=== PATIENT | female | born 1945 | race Caucasian/White ===

== ENCOUNTER → 2020-07-15 | Outpatient (CLI) | payer MEDICARE | END | disposition home or self-care (01) | LOC: SHCH 09:56 | PROVIDERS: ATTEND Internal Medicine Cardiovascular Disease | DX: G45.1 Carotid artery syndrome (hemispheric) (principal) | CPT/HCPCS: 93880 ==

== ENCOUNTER 2021-11-15 23:23 | Observation (INO) | payer MEDICARE ==
[~2021-11-15] VITALS: Ht 162.6 cm; Wt 62.1 kg
[2021-11-15 23:45] LABS: BASOPHILS % (AUTO) 0.6 % (0.0-5.0); EOSINOPHILS % (AUTO) 3.6 % (0.0-8.0); HEMATOCRIT 38.6 % (36-48); LYMPHOCYTES % (AUTO) 24.6 % (21.0-51.0); MEAN CORPUSCULAR HEMOGLOBIN 29.4 pg (27.0-33.0); MEAN CORPUSCULAR HGB CONC 34.7 g/dL (32.0-36.0); MEAN CORPUSCULAR VOLUME 84.6 fL (79-99); MONOCYTES % (AUTO) 7.4 % (3.0-13.0); NEUTROPHILS % (AUTO) 63.5 % (40.0-77.0); PLATELET COUNT (AUTO) 194 K/uL (130-400); RED BLOOD CELL COUNT(AUTO) 4.56 MIL/uL (4.00-5.50); RED CELL DISTRIBUTION WIDTH 13.1 % (11.0-15.5)
[2021-11-16 00:01] LABS: CREATININE 0.7 mg/dL (0.5-1.5); POTASSIUM 4.2 mmol/L (3.5-5.1)
[2021-11-16 00:02] LABS: B-TYPE NATRIURETIC PEPTIDE 105 pg/mL (0-100)
[2021-11-16 00:06] LABS: ALBUMIN 4.1 g/dL (3.5-5.0); TOTAL PROTEIN, SERUM 7.1 g/dL (6.0-8.3)
[2021-11-16 00:07] LABS: APPEARANCE,URINE CLEAR (CLEAR); BILIRUBIN,URINE NEGATIVE (NEGATIVE); COLOR,URINE YELLOW (YELLOW); GLUCOSE, URINE (UA) NEGATIVE (NEGATIVE); KETONES,URINE NEGATIVE (NEGATIVE); LEUKOCYTE ESTERASE ,URINE NEGATIVE (NEGATIVE); NITRATE,URINE NEGATIVE (NEGATIVE); OCCULT BLOOD,URINE NEGATIVE (NEGATIVE); PROTEIN,URINE NEGATIVE (NEGATIVE); UROBILINOGEN,URINE 0.2 mg/dL (0.2-1.0)
[2021-11-16] MEDS ORDERED: ACETAMINOPHEN 325 MG TAB PO ONE (00:30)
[2021-11-16] MEDS ORDERED: LABETALOL 20MG SYG IV ONE (00:30)
[2021-11-16] MEDS ORDERED: NITROGLYCERIN 1GM OINT 1 INCH/1GM TD ONE (00:30)
[2021-11-16] MEDS: 0.9%NACL 1000ML 1,000 ML IV SCH (06:24)
[2021-11-16] MEDS ORDERED: ONDANSETRON 4MG INJ IVP PRN (06:30)
[2021-11-16] MEDS ORDERED: ACETAMINOPHEN 325 MG TAB PO PRN ×2 (06:30→19:00)
[2021-11-16] MEDS ORDERED: LABETALOL 20MG VIAL IV PRN (06:30)
[2021-11-16] MEDS ORDERED: NAPR220C15 PO (08:03)
[2021-11-16] MEDS ORDERED: SIMV-43 PO (08:03)
[2021-11-16] MEDS ORDERED: ALBU18HF7 IH (08:03)
[2021-11-16] MEDS ORDERED: OLME20TA22 PO (08:03)
[2021-11-16] MEDS ORDERED: BUSP7.5T7 PO (08:03)
[2021-11-16] MEDS ORDERED: TIZA2CAP9 PO (08:03)
[2021-11-16] MEDS ORDERED: TOPI25CA6 PO (08:03)
[2021-11-16] MEDS ORDERED: CA C1TAB95 PO (08:03)
[2021-11-16] MEDS ORDERED: LORA10TA7 PO ×2 (08:03→08:18)
[2021-11-16] MEDS ORDERED: AEC81 PO ×2 (08:03→08:18)
[2021-11-16] MEDS ORDERED: TOPI25TA48 PO (08:18)
[2021-11-16] MEDS ORDERED: FLUT1BLS15 IH (08:18)
[2021-11-16] MEDS ORDERED: ACET325T51 PO (08:18)
[2021-11-16] MEDS ORDERED: ALBU2.5V2 IH (08:18)
[2021-11-16 10:20] VITALS: BP 171/65
[2021-11-16 12:55] VITALS: BP 139/50
[2021-11-16 13:40] VITALS: BP 153/50
[2021-11-16 15:40] VITALS: BP 153/64
[2021-11-16] MEDS ORDERED: ALBUTEROL 0.083% 2.5 MG/3 ML INH IH PRN (19:00)
[2021-11-16] MEDS ORDERED: BUSPIRONE HCL 5 MG TABLET PO PRN (19:00)
[2021-11-16] MEDS ORDERED: KCL 20 MEQ ERTAB PO PRN (19:00)
[2021-11-16] MEDS ORDERED: POTASSIUM CHLORIDE 20MEQ/100ML 100 ML IV PRN (19:00)
[2021-11-16] MEDS ORDERED: POTASSIUM CHLORIDE 10% ELIXIR 20 MEQ/15 ML UDCUP PO PRN (19:00)
[2021-11-16] MEDS ORDERED: MAG/ALUM/SIMETH 30 ML UDCUP PO PRN (19:00)
[2021-11-16] MEDS ORDERED: LIDOCAINE HCL-MPF 1% 2ML VIAL IV PRN (19:00)
[2021-11-16] MEDS ORDERED: DiphenhydrAMINE HCL 50 MG/ML VIAL IV PRN (19:00)
[2021-11-16] MEDS ORDERED: DIPHENHYDRAMINE HCL 25 MG CAPSULE PO PRN (19:00)
[2021-11-16] MEDS ORDERED: LACTULOSE 20 GM/30 ML UDCUP PO PRN (19:00)
[2021-11-16] MEDS ORDERED: HYDRALAZINE HCL 10 MG TABLET PO PRN (19:00)
[2021-11-16 20:00] VITALS: BP 138/53
[2021-11-16] MEDS ORDERED: TOPIRAMATE 25 MG TABLET PO SCH (21:00)
[2021-11-17 00:17] VITALS: BP 145/63
[2021-11-17 04:00] VITALS: BP 159/74
[2021-11-17 05:09] LABS: CREATININE 0.7 mg/dL (0.5-1.5); POTASSIUM 4.2 mmol/L (3.5-5.1)
[2021-11-17 05:24] LABS: HEMATOCRIT 35.9 % (36-48); MEAN CORPUSCULAR HEMOGLOBIN 29.4 pg (27.0-33.0); MEAN CORPUSCULAR VOLUME 86.5 fL (79-99); RED BLOOD CELL COUNT(AUTO) 4.15 MIL/uL (4.00-5.50); RED CELL DISTRIBUTION WIDTH 13.4 % (11.0-15.5); WHITE BLOOD COUNT (AUTO) 6.9 K/uL (4.8-10.8)
[2021-11-17 07:30] VITALS: BP 151/75
[2021-11-17] MEDS: 0.9%NACL 1000ML 1,000 ML IV SCH (08:54)
[2021-11-17] MEDS ORDERED: ATORVASTATIN 20 MG TABLET PO SCH (09:00)
[2021-11-17] MEDS ORDERED: LOSARTAN 100 MG TABLET PO SCH (09:00)
[2021-11-17] MEDS ORDERED: FAMOTIDINE 20MG TAB PO SCH (09:00)
[2021-11-17] MEDS ORDERED: ASPIRIN 81 MG EC TAB PO SCH (09:00)
[2021-11-17] MEDS ORDERED: ENOXAPARIN SODIUM 40 MG/0.4 ML SYRINGE SQ SCH (09:00)
== END 2021-11-17 11:15 | disposition home or self-care (01) ==
LOC: EDH 23:23 → INTOOBSV 11-16 06:03 → EDHIP 11-16 06:03 → 4BH 11-16 08:58
PROVIDERS: ADMIT Internal Medicine; ATTEND Internal Medicine
DX: I16.0 Hypertensive urgency (principal); Z20.822 Contact with and (suspected) exposure to COVID-19; E04.2 Nontoxic multinodular goiter; I77.9 Disorder of arteries and arterioles, unspecified; I63.511 Cerebral infarction due to unspecified occlusion or stenosis of right middle cerebral artery; I16.1 Hypertensive emergency; I13.10 Hypertensive heart and chronic kidney disease without heart failure, with stage 1 through stage 4 chronic kidney disease, or unspecified chronic kidney disease; N18.2 Chronic kidney disease, stage 2 (mild); E11.22 Type 2 diabetes mellitus with diabetic chronic kidney disease; E11.42 Type 2 diabetes mellitus with diabetic polyneuropathy; E78.00 Pure hypercholesterolemia, unspecified; G56.01 Carpal tunnel syndrome, right upper limb; I25.10 Atherosclerotic heart disease of native coronary artery without angina pectoris; H35.30 Unspecified macular degeneration; I34.0 Nonrheumatic mitral (valve) insufficiency; I65.22 Occlusion and stenosis of left carotid artery; E78.5 Hyperlipidemia, unspecified; G93.89 Other specified disorders of brain; J10.1 Influenza due to other identified influenza virus with other respiratory manifestations; J30.9 Allergic rhinitis, unspecified; J44.9 Chronic obstructive pulmonary disease, unspecified; R51.9 Headache, unspecified; R19.7 Diarrhea, unspecified; J98.01 Acute bronchospasm; Z86.73 Personal history of transient ischemic attack (TIA), and cerebral infarction without residual deficits; Z87.891 Personal history of nicotine dependence; Z90.711 Acquired absence of uterus with remaining cervical stump; Z90.710 Acquired absence of both cervix and uterus; Z79.899 Other long term (current) drug therapy; Z98.890 Other specified postprocedural states
CPT/HCPCS: 82550; 84484 ×2; 80053; 83880; 85025; 87804 ×2; 83605; 87635; 71045; 93005 ×2; 84145; 96374; 96361 ×2; 96375; 99285; 85651 ×2; 87324; 82270; 81003; 36415 ×3; 70450; 93306; 93356; 93880; 94664; 83630; 96372; 80048; 85027; C9803; J2405; G0378 ×4; J1650

== ENCOUNTER → 2022-09-07 | Outpatient (CLI) | payer MEDICARE ==
[~2022-09-07] MED LIST: ACET325T51 PO; AEC81 PO; ALBU18HF7 IH; BUSP7.5T7 PO; CA C1TAB95 PO; FLUT1BLS15 IH; LORA10TA7 PO; OLME20TA22 PO; SIMV-43 PO; TIZA2CAP9 PO; TOPI25TA48 PO
[2022-09-07 16:21] LABS: BASOPHILS % (AUTO) 0.7 % (0.0-5.0); EOSINOPHILS % (AUTO) 1.5 % (0.0-8.0); HEMATOCRIT 49.1 % (36-48); LYMPHOCYTES % (AUTO) 41.5 % (21.0-51.0); MEAN CORPUSCULAR HEMOGLOBIN 28.7 pg (27.0-33.0); MEAN CORPUSCULAR HGB CONC 33.2 g/dL (32.0-36.0); MEAN CORPUSCULAR VOLUME 86.4 fL (79-99); MONOCYTES % (AUTO) 7.6 % (3.0-13.0); NEUTROPHILS % (AUTO) 48.4 % (40.0-77.0); PLATELET COUNT (AUTO) 261 K/uL (130-400); RED BLOOD CELL COUNT(AUTO) 5.68 MIL/uL (4.00-5.50); RED CELL DISTRIBUTION WIDTH 13.4 % (11.0-15.5); WHITE BLOOD COUNT (AUTO) 9.1 K/uL (4.8-10.8)
== END | disposition home or self-care (01) ==
LOC: LAB 12:57
PROVIDERS: ATTEND Internal Medicine Cardiovascular Disease
DX: Z79.01 Long term (current) use of anticoagulants (principal)
CPT/HCPCS: 36415; 85025

== ENCOUNTER 2022-10-30 03:46 | Inpatient (IN) | payer MEDICARE ==
[~2022-10-30] VITALS: Ht 157.5 cm; Wt 62.8 kg
[~2022-10-30 03:46] MED LIST changes: +ACET-2743 PO; -ACET325T51 PO; -AEC81 PO; -ALBU18HF7 IH; +APIX5TAB PO; -BUSP7.5T7 PO; -CA C1TAB95 PO; -FLUT1BLS15 IH; +METO-391 PO; +MVIT PO; -OLME20TA22 PO; +OLME40TA18 PO
[2022-10-30 04:20] LABS: BASOPHILS % (AUTO) 0.4 % (0.0-5.0); HEMATOCRIT 40.6 % (36-48); LYMPHOCYTES % (AUTO) 17.4 % (21.0-51.0); MEAN CORPUSCULAR HEMOGLOBIN 28.4 pg (27.0-33.0); MEAN CORPUSCULAR HGB CONC 32.3 g/dL (32.0-36.0); MEAN CORPUSCULAR VOLUME 87.9 fL (79-99); MONOCYTES % (AUTO) 6.7 % (3.0-13.0); NEUTROPHILS % (AUTO) 74.3 % (40.0-77.0); PLATELET COUNT (AUTO) 173 K/uL (130-400); RED BLOOD CELL COUNT(AUTO) 4.62 MIL/uL (4.00-5.50); RED CELL DISTRIBUTION WIDTH 13.2 % (11.0-15.5); WHITE BLOOD COUNT (AUTO) 8.2 K/uL (4.8-10.8)
[2022-10-30 04:32] LABS: POTASSIUM 4.4 mmol/L (3.5-5.1)
[2022-10-30] MEDS ORDERED: ATROPINE 1MG SYG IVP ONE (04:33)
[2022-10-30 04:37] LABS: ALBUMIN 3.3 g/dL (3.5-5.0); TOTAL PROTEIN, SERUM 5.8 g/dL (6.0-8.3)
[2022-10-30] MEDS: ATROPINE 1MG SYG IVP SCH (04:42)
[2022-10-30] MEDS ORDERED: DOPAMINE HCL 400 MG/D5%-WATER 250 ML IV PRN (05:00)
[2022-10-30] MEDS: DOPAMINE 800MG/D5 250ML 250 ML IV PRN (05:24)
[2022-10-30 05:30] LABS: INR 1.06 (0.85-1.15); PROTHROMBIN TIME 12.3 SEC (9.6-11.6)
[2022-10-30] MEDS ORDERED: ONDANSETRON 4MG INJ IV PRN (05:30)
[2022-10-30 05:31] LABS: PARTIAL THROMBOPLASTIN TIME 30.2 SEC (26.3-35.5)
[2022-10-30] MEDS: FAMOTIDINE 20MG TAB PO SCH (09:14)
[2022-10-30] MEDS ORDERED: FLEC50TA3 PO (15:09)
[2022-10-30] MEDS ORDERED: APIXABAN 5 MG TABLET PO SCH (21:00)
[2022-10-30] MEDS: APIXABAN 5 MG TABLET PO SCH (21:29)
[2022-10-31] MEDS: DOPAMINE 800MG/D5 250ML 250 ML IV PRN (01:00)
[2022-10-31] MEDS: ATROPINE 1MG SYG IVP SCH (05:17)
[2022-10-31 06:15] LABS: ALBUMIN 2.8 g/dL (3.5-5.0); CREATININE 0.8 mg/dL (0.5-1.5); THYROID STIMULATING HORMONE 0.15 uIU/mL (0.36-3.74); TOTAL PROTEIN, SERUM 5.6 g/dL (6.0-8.3)
[2022-10-31] MEDS: APIXABAN 5 MG TABLET PO SCH ×2 (08:51→22:29)
[2022-10-31] MEDS: MULTIVITAMIN TABLET PO SCH (08:51)
[2022-10-31] MEDS: FAMOTIDINE 20MG TAB PO SCH (08:52)
[2022-10-31] MEDS: LOSARTAN 100 MG TABLET PO SCH (09:00)
[2022-10-31] MEDS ORDERED: METOPROLOL SUCCINATE 50 MG TAB.SR.24H PO SCH (09:00)
[2022-10-31] MEDS: FLECAINIDE ACETATE 100 MG TABLET PO SCH ×2 (09:32→22:30)
[2022-10-31] MEDS: TOPIRAMATE 25 MG TABLET PO SCH (09:32)
[2022-10-31 16:10] VITALS: BP 147/72; PULSE 63; RESP 18
[2022-10-31 17:21] VITALS: O2SAT 99
[2022-10-31] MEDS: ACETAMINOPHEN 325 MG TAB PO PRN (17:48)
[2022-10-31 19:15] VITALS: BP 89/53; PULSE 71; RESP 22
[2022-10-31 20:00] VITALS: O2SAT 99
[2022-10-31] MEDS: METOPROLOL SUCCINATE 25 MG TAB.SR.24H PO SCH (22:29)
[2022-11-01] VITALS (12 sets, daily range): BP systolic 99–201; BP diastolic 52–87; PULSE 53–127; RESP 16–20; O2SAT 99
[2022-11-01] MEDS ORDERED: REGADENOSON 0.4 MG/5 ML PF SYG IVP SCH (07:30)
[2022-11-01] MEDS: FLECAINIDE ACETATE 100 MG TABLET PO SCH ×2 (07:32→20:19)
[2022-11-01] MEDS: APIXABAN 5 MG TABLET PO SCH ×2 (07:32→20:14)
[2022-11-01] MEDS: FAMOTIDINE 20MG TAB PO SCH (07:32)
[2022-11-01] MEDS: MULTIVITAMIN TABLET PO SCH (07:32)
[2022-11-01] MEDS: LOSARTAN 100 MG TABLET PO SCH ×2 (07:32→17:23)
[2022-11-01] MEDS: TOPIRAMATE 25 MG TABLET PO SCH (07:32)
[2022-11-01] MEDS: METOPROLOL SUCCINATE 25 MG TAB.SR.24H PO SCH ×2 (07:32→20:13)
[2022-11-01] MEDS ORDERED: AMIO200T68 PO (09:34)
[2022-11-01] MEDS ORDERED: LORA10TA7 PO (09:34)
[2022-11-01] MEDS ORDERED: METO-391 PO (09:34)
[2022-11-01] MEDS ORDERED: FLUT1BLS15 IH (09:34)
[2022-11-01] MEDS ORDERED: OXYB-66 PO (09:34)
[2022-11-01] MEDS ORDERED: BUSP7.5T7 PO (09:34)
[2022-11-01] MEDS ORDERED: HYDRALAZINE 20MG/ML VIAL IV PRN (17:50)
[2022-11-01] MEDS ORDERED: ALPRAZOLAM 0.25 MG TABLET PO PRN (19:00)
[2022-11-01] MEDS: ACETAMINOPHEN 325 MG TAB PO PRN (20:13)
[2022-11-02] VITALS (8 sets, daily range): BP systolic 105–170; BP diastolic 22–80; PULSE 54–90; RESP 18–20; O2SAT 99
[2022-11-02] MEDS ORDERED: BUSPIRONE HCL 5 MG TABLET PO PRN (01:30)
[2022-11-02] MEDS ORDERED: HYDRALAZINE 20MG/ML VIAL IV PRN (01:30)
[2022-11-02] MEDS ORDERED: GLUCAGON 1MG KIT 1 MG ML IM PRN (02:00)
[2022-11-02] MEDS ORDERED: POTASSIUM CHLORIDE 20MEQ/100ML 100 ML IV PRN (02:00)
[2022-11-02] MEDS ORDERED: DEXTROSE 50%-WATER 50 ML DISP.SYRIN IV PRN (02:00)
[2022-11-02] MEDS ORDERED: POTASSIUM CHLORIDE 10% ELIXIR 20 MEQ/15 ML UDCUP PO PRN (02:00)
[2022-11-02] MEDS ORDERED: MAGNESIUM 2GM PREMIX 50ML 50 ML IV PRN (02:00)
[2022-11-02] MEDS ORDERED: KCL 20 MEQ ERTAB PO PRN (02:00)
[2022-11-02 03:40] LABS: HEMATOCRIT 42.6 % (36-48); MEAN CORPUSCULAR HEMOGLOBIN 28.4 pg (27.0-33.0); MEAN CORPUSCULAR HGB CONC 32.6 g/dL (32.0-36.0); MEAN CORPUSCULAR VOLUME 86.9 fL (79-99); RED BLOOD CELL COUNT(AUTO) 4.9 MIL/uL (4.00-5.50); RED CELL DISTRIBUTION WIDTH 13.2 % (11.0-15.5); WHITE BLOOD COUNT (AUTO) 7.8 K/uL (4.8-10.8)
[2022-11-02 03:53] LABS: CREATININE 0.8 mg/dL (0.5-1.5); MAGNESIUM 1.7 mg/dL (1.80-2.40); POTASSIUM 3.7 mmol/L (3.5-5.1)
[2022-11-02] MEDS: TOPIRAMATE 25 MG TABLET PO SCH (08:30)
[2022-11-02] MEDS: FAMOTIDINE 20MG TAB PO SCH (08:30)
[2022-11-02] MEDS: MULTIVITAMIN TABLET PO SCH (08:30)
[2022-11-02] MEDS: LOSARTAN 100 MG TABLET PO SCH (08:30)
[2022-11-02] MEDS: METOPROLOL SUCCINATE 25 MG TAB.SR.24H PO SCH ×2 (08:31→20:58)
[2022-11-02] MEDS: APIXABAN 5 MG TABLET PO SCH ×2 (08:31→20:57)
[2022-11-02] MEDS: PROPAFENONE HCL 150 MG TABLET PO SCH ×2 (08:32→17:22)
[2022-11-02] MEDS: HYDRALAZINE HCL 10 MG TABLET PO PRN (18:04)
[2022-11-03] VITALS: BP 154/84; PULSE 56; RESP 18
[2022-11-03] MEDS: PROPAFENONE HCL 150 MG TABLET PO SCH ×2 (00:40→09:20)
[2022-11-03 04:30] VITALS: BP 176/74; PULSE 52; RESP 18
[2022-11-03] MEDS: HYDRALAZINE HCL 10 MG TABLET PO PRN (05:26)
[2022-11-03] MEDS: ACETAMINOPHEN 325 MG TAB PO PRN (06:37)
[2022-11-03 06:38] VITALS: BP 153/69; PULSE 54; RESP 20
[2022-11-03 07:36] VITALS: BP 130/57; PULSE 52; RESP 18
[2022-11-03] MEDS: METOPROLOL SUCCINATE 25 MG TAB.SR.24H PO SCH (09:00)
[2022-11-03] MEDS: MULTIVITAMIN TABLET PO SCH (09:20)
[2022-11-03] MEDS: FAMOTIDINE 20MG TAB PO SCH (09:20)
[2022-11-03] MEDS: APIXABAN 5 MG TABLET PO SCH (09:20)
[2022-11-03] MEDS: TOPIRAMATE 25 MG TABLET PO SCH (09:21)
[2022-11-03] MEDS: LOSARTAN 100 MG TABLET PO SCH (09:21)
[2022-11-03] MEDS ORDERED: DILTIAZEM 120MG SR CAP PO SCH (09:30)
[2022-11-03] MEDS ORDERED: DILT-36 PO (09:37)
[2022-11-03] MEDS ORDERED: PROP225C8 PO (09:37)
[2022-11-03 10:10] VITALS: O2SAT 99
== END 2022-11-03 12:32 | disposition home or self-care (01) | DRG 309 ==
LOC: EDH 03:46 → EDHIP 05:19 → 4DH 22:43 → EDHIP 10-31 03:04 → 2DH 10-31 16:01
PROVIDERS: ADMIT Internal Medicine; ATTEND Internal Medicine
DX: I48.0 Paroxysmal atrial fibrillation (principal); D68.59 Other primary thrombophilia; E44.1 Mild protein-calorie malnutrition; I13.0 Hypertensive heart and chronic kidney disease with heart failure and stage 1 through stage 4 chronic kidney disease, or unspecified chronic kidney disease; I16.0 Hypertensive urgency; R07.89 Other chest pain; I49.5 Sick sinus syndrome; I70.8 Atherosclerosis of other arteries; N18.2 Chronic kidney disease, stage 2 (mild); E11.22 Type 2 diabetes mellitus with diabetic chronic kidney disease; I50.9 Heart failure, unspecified; E04.2 Nontoxic multinodular goiter; E78.2 Mixed hyperlipidemia; E11.42 Type 2 diabetes mellitus with diabetic polyneuropathy; T46.2X5A Adverse effect of other antidysrhythmic drugs, initial encounter; E78.00 Pure hypercholesterolemia, unspecified; I95.9 Hypotension, unspecified; I25.10 Atherosclerotic heart disease of native coronary artery without angina pectoris; J44.9 Chronic obstructive pulmonary disease, unspecified; R79.89 Other specified abnormal findings of blood chemistry; R74.8 Abnormal levels of other serum enzymes; F17.200 Nicotine dependence, unspecified, uncomplicated; Z79.01 Long term (current) use of anticoagulants; Z88.0 Allergy status to penicillin; Z68.25 Body mass index [BMI] 25.0-25.9, adult; Z86.73 Personal history of transient ischemic attack (TIA), and cerebral infarction without residual deficits; Z83.3 Family history of diabetes mellitus; Z82.49 Family history of ischemic heart disease and other diseases of the circulatory system; Y92.89 Other specified places as the place of occurrence of the external cause
CPT/HCPCS: 36415; 71045; 78452; 80048; 80053; 82570; 82948; 83497; 83735; 83880; 84439; 84443; 84484; 85025; 85027; 85610; 85730; 93005; 93017; 96374; 99291; A9500; G0378; J0360; J0461; J1265; J2405; J2785; J3475

== ENCOUNTER 2023-10-31 22:54 | Emergency (ER) | payer MEDICARE ==
[~2023-10-31] VITALS: Ht 162.6 cm; Wt 60.8 kg
[~2023-10-31 22:54] MED LIST changes: -ACET-2743 PO; +BUSP7.5T7 PO; +DILT-36 PO; +FLUT1BLS15 IH; -METO-391 PO; +OXYB-66 PO; +PROP225C24 PO
[2023-11-01 00:18] LABS: CREATININE 0.7 mg/dL (0.5-1.0); POTASSIUM 3.8 mmol/L (3.5-5.1)
[2023-11-01] MEDS: LACTATED RINGERS 1000ML 1,000 ML IV ONE (00:19)
[2023-11-01 00:27] LABS: BASOPHILS # (AUTO) 0.05 K/uL (0.00-0.20); BASOPHILS % (AUTO) 0.4 % (0.0-5.0); EOSINOPHILS % (AUTO) 1.7 % (0.0-8.0); IMMATURE GRANULOCYTE ABSOLUTE 0.04 K/uL (0-1); LYMPHOCYTES # (AUTO) 3.2 K/uL (1.0-4.8); LYMPHOCYTES % (AUTO) 26.5 % (21.0-51.0); MEAN CORPUSCULAR HEMOGLOBIN 28.9 pg (27.0-33.0); MEAN CORPUSCULAR HGB CONC 34.1 g/dL (32.0-36.0); MEAN CORPUSCULAR VOLUME 84.8 fL (79-99); MONOCYTES # (AUTO) 0.9 K/uL (0.1-1.0); MONOCYTES % (AUTO) 7.5 % (3.0-13.0); NEUTROPHILS # (AUTO) 7.6 K/uL (1.8-7.7); NEUTROPHILS % (AUTO) 63.6 % (40.0-77.0); PLATELET COUNT (AUTO) 207 K/uL (130-400); RED CELL DISTRIBUTION WIDTH 12.6 % (11.0-15.5); WHITE BLOOD COUNT (AUTO) 11.9 K/uL (4.8-10.8)
[2023-11-01 01:50] LABS: SARS-CoV-2, RNA, NAAT NEGATIVE SARS CoV-2 (NEGATIVE)
[2023-11-01 01:55] LABS: INFLUENZA TYPE A Negative For Type A (NEGATIVE); INFLUENZA TYPE B Negative For Type B (NEGATIVE)
[2023-11-01 03:07] LABS: APPEARANCE,URINE CLEAR (CLEAR); BILIRUBIN,URINE NEGATIVE (NEGATIVE); COLOR,URINE COLORLESS (YELLOW); GLUCOSE, URINE (UA) NEGATIVE (NEGATIVE); KETONES,URINE NEGATIVE (NEGATIVE); LEUKOCYTE ESTERASE ,URINE NEGATIVE Leu/uL (NEGATIVE); NITRATE,URINE NEGATIVE (NEGATIVE); OCCULT BLOOD,URINE NEGATIVE (NEGATIVE); PH,URINE 6.5 (5.0-8.0); PROTEIN,URINE NEGATIVE (NEGATIVE); UROBILINOGEN,URINE 0.2 mg/dL (0.2-1.0)
[2023-11-01 03:11] LABS: ADD UA MICROSCOPIC NO
[2023-11-01] MEDS ORDERED: LACT10SO85 PO (04:10)
[2023-11-01 05:20] VITALS: BP 132/72; PULSE 68; RESP 16; O2SAT 97
== END 2023-11-01 05:23 | disposition home or self-care (01) ==
LOC: EDH 22:54
DX: E86.0 Dehydration (principal); G25.81 Restless legs syndrome; E78.00 Pure hypercholesterolemia, unspecified; I10 Essential (primary) hypertension; I48.91 Unspecified atrial fibrillation; Z20.822 Contact with and (suspected) exposure to COVID-19; Z88.0 Allergy status to penicillin; Z79.01 Long term (current) use of anticoagulants; Z79.899 Other long term (current) drug therapy; Z90.710 Acquired absence of both cervix and uterus; Z98.890 Other specified postprocedural states
CPT/HCPCS: 99285; 71045; 87635; 82550; 84484; 80048; 85025; 87804 ×2; 81003; 36415; 93005; J7120

== ENCOUNTER 2024-10-05 16:25 | Emergency (ER) | payer MEDICARE ==
[~2024-10-05] VITALS: Ht 162.6 cm; Wt 60.8 kg
[~2024-10-05 16:25] MED LIST changes: +LACT10SO85 PO; +TOPI-257 PO; -TOPI25TA48 PO
[2024-10-05] MEDS ORDERED: TRAM-543 PO (17:32)
--- NOTE | 2024-10-05 17:32 | ERN ---
General Chief Complaint: Mechanical Fall Stated Complaint: FALL Time Seen by MD: 16:26 Source: patient History of Present Illness Initial Comments Patient is a an 78-year-old female coming in to be evaluated for she had a fall. Per patient she tripped earlier today while ambulating and states she hurt both lower legs. She states that nothing else hurts and she is here just to evaluate her lower legs. Allergies: Coded Allergies: Penicillins (Unverified Allergy, Unknown, 11/15/21) POSSIBLE ALLERGY Home Meds Active Scripts Tramadol HCl/Acetaminophen (Tramadol-Acetaminophn 37.5-325) 37.5 Mg-325 Mg Tablet, 1 TAB PO BID PRN for pain for 3 Days, #12 TAB 0 Refills Prov:ALLIE DRUMMOND MD 10/05/24 Lactulose (Lactulose) 10 Gram/15 Ml Solution, 10 GM PO BID PRN for CONSTIPATION for 5 Days, #100 ML Prov:ALLIE DRUMMOND MD 11/01/23 Diltiazem HCl (Diltiazem 24Hr ER) 120 Mg Cap.er.24h, 120 MG PO DAILY, #30 CAPSULE. 3 Refills Prov:ALVARO CHAVARRIA MD 11/03/22 Propafenone HCl (Propafenone HCl) 225 Mg Cap.er.12h, 225 MG PO BID, #60 CAP TESS. 3 Refills Prov:ALVARO CHAVARRIA MD 11/03/22 Fluticasone/Umeclidin/Vilanter (Trelegy Ellipta 200-62.5-25) 1 Each Blst.w.dev, 1 EACH IH DAILY, #90 DAYS Prov:ESTELLA ECKERT MD 11/01/22 Buspirone HCl (Buspirone HCl) 7.5 Mg Tablet, 7.5 MG PO BID PRN for ANXIETY, #90 TAB Prov:ESTELLA ECKERT MD 11/01/22 Oxybutynin Chloride (Oxybutynin Chloride ER) 5 Mg Tab.er.24, 5 MG PO DAILY, #90 TAB Prov:ESTELLA ECKERT MD 11/01/22 Loratadine (Loratadine) 10 Mg Tablet, 10 MG PO DAILY PRN for allergy, #90 TAB Prov:ESTELLA ECKERT MD 11/01/22 Reported Medications Olmesartan Medoxomil (Olmesartan Medoxomil) 40 Mg Tablet, 20 MG PO AM, TAB 10/26/22 Apixaban (Eliquis) 5 Mg Tablet, 5 MG PO BID, TAB 10/26/22 Topiramate (Topiramate) 25 Mg Tablet, 25 MG PO AM, TAB 10/26/22 Multivitamins,Therapeutic (Multivitamin Tablet) 1 Tab Tab, 1 TAB PO DAILY, TAB 10/26/22 Tizanidine HCl (Tizanidine HCl) 2 Mg Capsule, 2 MG PO HSPRN PRN for MUSCLE SPASMS, CAP 11/16/21 Simvastatin (Simvastatin) 20 Mg Tablet, 20 MG PO HS, TAB 11/16/21 Past Medical History Past Medical History: A-Fib, High Cholesterol, Other Medical History Other: TIA Past Surgical History: Hysterectomy, Other Surgical History Other: AORTIC VALVE SX Family History Family History: DM, HTN Social History Social History: Negative, Lives with family ROS Dictation CONSTITUTIONAL: No chills, no fever, no weakness, no diaphoresis, no malaise. HEAD/FACE: No signs of trauma. EENT: No eye pain, no blurred vision, no tearing, no double vision, no ear pain, no ear discharge, no nose pain, no nasal congestion, no throat pain, no throat swelling, no mouth pain. RESPIRATORY: No cough, no orthopnea, no SOB, no stridor, no wheezing. CARDIOVASCULAR: No chest pain, no edema, no palpitations, no syncope. GASTROINTESTINAL/ABDOMINAL: No abdominal pain, no constipation, no diarrhea, no nausea, no vomiting. GENITOURINARY: No abnormal discharge, no dysuria, no frequent urination, no hematuria. No complaints of pain in the genitals. MUSCULOSKELETAL: No back pain, no gout, no joint pain, no joint swelling, muscle pain, no muscle stiffness, no neck pain. INTEGUMENTARY: No change in color, no change in hair/nails, no dryness, no lesion, no lumps, no rash. NEUROLOGICAL/PSYCH: No anxiety, not depressed, no emotional problem, no h eadache, no numbness, no pre-existing deficit, no history of seizures, no tremors, no weakness. HEMATOLOGIC/LYMPHATIC: Not anemic, no history of blood clots, no apparent bleeding, no bruising, glands not swollen. All Systems Negative, Except as Noted. Physical Exam Physical Exam Dictation VITAL SIGNS: Reviewed. GENERAL APPEARANCE: Alert, oriented x3, no acute distress, obese. HEAD AND FACE: Non-traumatic. EYES: PERRL, pink conjunctivas, eyelid no trauma, anterior chamber clear. EARS: Pinnas intact and no signs of trauma or erythema. Ear canals clear and no discharge. TMs no erythema. NOSE: No discharge, no bleeding. OROPHARYNX: Mouth normal, teeth no caries, tongue pink. Pharynx clear, no erythema. Tonsils no exudates, no abscesses noted. Mucous membrane moist. NECK: Supple, non-tender, no thyromegaly, no masses, no JVD, no bruits. BREAST: Deferred. CHEST: No tenderness, no crepitus, no paradoxical movement, no retractions. LUNGS: Clear, well-ventilated, symmetric, no rales, no wheezing, no rhonchi, no stridor, good breath sounds bilaterally. HEART: Regular rate, regular rhythm, no murmur, no gallops. VASCULAR: No peripheral edema. ABDOMEN: Soft, positive bowel sounds, nondistended, no guarding, nontender, no rebound, no masses no hepatomegaly, no splenomegaly, no Sales's sign, no hernias. RECTAL: Deferred. GENITAL: Deferred. NEUROLOGICAL: Normal speech, gross motor function intact, gross sensory function intact. MUSCULOSKELETAL: Neck nontender, full range of motion, back nontender, full range of motion. EXTREMITIES: Nontender, full range of motion. Anterior peters contusions bilateral SKIN: Color pink, dry, no turgor, no rash, no lacerations, no abrasions, no contusions. LYMPHATICS: Deferred. Results Laboratory and Microbiology Labs Reviewed?: Yes EKG/XRAY/US/CT/MRI X-RAY Comment X-ray lower extremity tib-fib bilateral-NAD MDM MDM: Differential diagnosis: Fall, leg contusion, Rationale: Tests considered and ordered secondary to shared decision making include: Previous outside records reviewed: Old ER visits. Risk of complication and/or morbidity or mortality of patient management: None Medications-Per medication reconciliation Need for hospitalization: Patient does not meet criteria for hospitalization. Patient is a 78-year-old female coming in to be evaluated for lower extremity pain after a fall. X-ray did not disclose acute findings. Patient will be discharged in stable condition with a diagnosis of lower leg contusion. I did advised her appropriate follow up with the PCP. Medication will be provided for symptomatic relief. ED Course Orders Procedure Category Date Status Time Tibia/Fibula 2vws Lt RAD 10/05/24 Taken 16:31 Tibia/Fibula 2vws Rt RAD 10/05/24 Taken 16:31 Tramadol PHA 10/05/24 In Process Hcl/Acetaminophen 17:30 Current Medications Medications (Trade) Dose Ordered Sig/Maribel Route PRN Reason Start Time Stop Time Status Last Admin Dose Admin Tramadol/ Acetaminophen (UltraCET) 1 tab ONCE PO 10/05/24 17:30 10/05/24 21:30 Vital Signs Date Time Temp Pulse Resp B/P (MAP) Pulse Ox O2 Delivery O2 Flow Rate FiO2 10/05/24 16:28 98.1 69 16 196/63 99 Room Air 0 DX & DISP Disposition: Discharge Departure Impression: Primary Impression: Contusion, lower leg Condition: Stable Scripts Tramadol HCl/Acetaminophen (Tramadol-Acetaminophn 37.5-325) 37.5 Mg-325 Mg Tabl et 1 TAB PO BID PRN for pain for 3 Days, #12 TAB 0 Refills Prov: ALLIE DRUMMOND MD 10/05/24 Additional Instructions: FOLLOW-UP WITH PRIMARY CARE PROVIDER IN 1 TO 2 DAYS. TAKE MEDICATIONS DIRECTED HERE IN THE EMERGENCY ROOM. OKAY TO CONTINUE HOME MEDICATIONS UNLESS OTHERWISE DISCUSSED DURING YOUR VISIT IN THE EMERGENCY ROOM TODAY. RETURN TO YOUR NEAREST EMERGENCY ROOM IF SYMPTOMS WORSEN OR IF THERE IS NO IMPROVEMENT. CALL 911 IF YOU NEED IMMEDIATE ASSISTANCE. TAKE TYLENOL [id number]-[id number]-[id number] NEEDED AND IF NO CONTRAINDICATIONS ARE PRESENT. INCREASE ORAL HYDRATION. A WOUND CULTURE OR URINE CULTURE WAS ORDERED HERE IN THE EMERGENCY ROOM DEPARTMENT PLEASE FOLLOW-UP WITH PRIMARY CARE PROVIDER AND ADVISE THEM TO GET REPORTS FROM OUR FACILITY. IF YOU HAD ANY JOHN WRAP/SPLINTS THAT WERE APPLIED HERE, PLEASE DO NOT REMOVE THEM UNTIL YOU SEE YOUR PRIMARY CARE OR SPECIALTY. Referrals: Referrals: ESTELLA ECKERT MD (PCP) Time of Disposition: 17:31 ALLIE DRUMMOND MD Oct 05, 2024 17:32
[2024-10-05] MEDS: traMADol /APAP 37.5MG/325MG TAB PO SCH (17:47)
[2024-10-05 18:12] VITALS: BP 157/69; PULSE 89; RESP 20; TEMP 98.1; O2SAT 99
--- NOTE | 2024-10-06 01:42 | HMCIMG ---
EXAM: CR Left Tibia and Fibula, 3 views. CLINICAL HISTORY: Fall. COMPARISON: None provided. FINDINGS: No acute fracture or aggressive appearing osseous lesion. Joint spaces are within normal limits. Diffuse soft tissue swelling is evident. Prominent plantar and posterior calcaneal enthesophytes. IMPRESSION: No acute bony abnormality is evident. /[place]
--- NOTE | 2024-10-06 01:47 | HMCIMG ---
EXAM: CR Right Tibia and Fibula, 3 views. CLINICAL HISTORY: Fall. COMPARISON: None provided. FINDINGS: No acute fracture or aggressive appearing osseous lesion. Joint spaces are within normal limits. Diffuse soft tissue swelling. Prominent plantar and posterior calcaneal enthesophytes. IMPRESSION: No acute bony abnormality is evident. /[place]
== END 2024-10-05 18:13 | disposition home or self-care (01) ==
LOC: EDH 16:25
DX: S80.12XA Contusion of left lower leg, initial encounter (principal); S80.11XA Contusion of right lower leg, initial encounter; E78.00 Pure hypercholesterolemia, unspecified; I48.91 Unspecified atrial fibrillation; Z79.899 Other long term (current) drug therapy; Z86.73 Personal history of transient ischemic attack (TIA), and cerebral infarction without residual deficits; Z88.0 Allergy status to penicillin; Z90.710 Acquired absence of both cervix and uterus; Z98.890 Other specified postprocedural states; W01.0XXA Fall on same level from slipping, tripping and stumbling without subsequent striking against object, initial encounter; Y93.01 Activity, walking, marching and hiking; Y92.89 Other specified places as the place of occurrence of the external cause; Y99.8 Other external cause status
CPT/HCPCS: 73590; 99284

== ENCOUNTER → 2024-12-24 | Outpatient (CLI) | payer MEDICARE ==
[~2024-12-24] MED LIST changes: +TRAM-543 PO
--- NOTE | 2024-12-24 17:20 | HMCIMG ---
EXAM: US Retroperitoneum Complete, Renal. CLINICAL HISTORY: Recurrent urinary tract infections, hematuria. TECHNIQUE: Real-time ultrasound of the retroperitoneum (complete) with image documentation. COMPARISON: None provided. FINDINGS: RIGHT KIDNEY: Measures 10.1 x 4.7 x 4.6 cm. Normal cortical thickness and echogenicity. No hydronephrosis, calculi, or focal renal lesions identified. LEFT KIDNEY: Measures 10.1 x 4.7 x 5.3 cm. Normal cortical thickness and echogenicity. No hydronephrosis, calculi, or focal renal lesions identified. BLADDER: Wall thickness 2 mm (within normal limits). No intraluminal masses, stones, or debris. Bilateral ureteral jets visualized. Normal bladder wall thickness and bilateral ureteral jets. No sonographic evidence of hydronephrosis, renal calculi, or masses. IMPRESSION: 1. No sonographic evidence of hydronephrosis, renal calculi, or masses. 2. Normal bladder wall thickness and bilateral ureteral jets. /[place]
== END | disposition home or self-care (01) ==
LOC: RAH 13:56
PROVIDERS: ATTEND Internal Medicine
DX: N39.0 Urinary tract infection, site not specified (principal); R31.9 Hematuria, unspecified; Z87.440 Personal history of urinary (tract) infections
CPT/HCPCS: 76770

== ENCOUNTER → 2024-12-26 | Outpatient (CLI) | payer MEDICARE ==
--- NOTE | 2024-12-26 18:11 | HMCIMG ---
EXAM: CR Chest, 2 View. CLINICAL HISTORY: PERSISTANT COUGH COMPARISON: None provided. FINDINGS: LUNGS: The lungs show no infiltrate or other acute finding. PLEURAL SPACES: No evidence of pleural effusion or pneumothorax. MEDIASTINUM: Cardiac size and mediastinal contours within normal limits. BONES: No aggressive appearing osseous lesion seen. IMPRESSION: No acute cardiopulmonary pathology is evident. /[place]
== END | disposition home or self-care (01) ==
LOC: RAH 13:01
PROVIDERS: ATTEND Internal Medicine
DX: R05.3 Chronic cough (principal)
CPT/HCPCS: 71046

== ENCOUNTER 2025-04-03 13:58 | Emergency (ER) | payer MEDICARE ==
[~2025-04-03] VITALS: Ht 162.6 cm; Wt 55.3 kg
--- NOTE | 2025-04-03 14:06 | NUR ---
PATIENT IN ROOM
[2025-04-03 14:48] LABS: IMMATURE GRANULOCYTE ABSOLUTE 0.04 K/uL (0-1); NUCLEATED RED BLOOD CELLS 0.0 % (0.0-0.19); PLATELET COUNT (AUTO) 240 K/uL (130-400); RED BLOOD CELL COUNT(AUTO) 4.79 MIL/uL (4.00-5.50); RED CELL DISTRIBUTION WIDTH 12.8 % (11.0-15.5); WHITE BLOOD COUNT (AUTO) 10.0 K/uL (4.8-10.8)
[2025-04-03 14:59] LABS: CREATININE 0.6 mg/dL (0.5-1.0); GLOMERULAR FILTR. RATE CALC 90.0 mL/min (>90); GLUCOSE,RANDOM 101.0 mg/dL (70-105); SODIUM SERUM 133.0 mmol/L (136-145); UREA NITROGEN, BLOOD 8.0 mg/dL (7-18)
[2025-04-03 15:04] LABS: APPEARANCE,URINE CLEAR (CLEAR); GLUCOSE, URINE (UA) NEGATIVE (NEGATIVE); LEUKOCYTE ESTERASE ,URINE NEGATIVE Leu/uL (NEGATIVE); NITRATE,URINE NEGATIVE (NEGATIVE); OCCULT BLOOD,URINE NEGATIVE (NEGATIVE)
[2025-04-03 15:06] LABS: ADD UA MICROSCOPIC NO
--- NOTE | 2025-04-03 15:11 | ERN ---
General Chief Complaint: Hemorrhoids Stated Complaint: HEMORROIDS Time Seen by MD: 14:09 History of Present Illness Initial Comments Ms Mckeon, 79F came to the ER by ambulance due to blood in her stools since many days. She reports constipation, severe pain while associated with small quantity of blood, small mass near the rectum since many days and wanted to do something about it today so that prompted her to come to the ER. She visited her PCP yesterday and has complained about hemorrhoids where she was advised to take prune juice. She has history of AFib and hypertension for which she is on Eliquis once a day. Complaints no abdominal pain, diarrhea, fever, nausea or vomiting. Timing/Duration: constant Severity: mild Modifying Factors: improves with rest Allergies: Coded Allergies: Penicillins (Unverified Allergy, Unknown, 11/15/21) POSSIBLE ALLERGY Home Meds Active Scripts Docusate Sodium (Colace) 100 Mg Capsule, 1 CAP PO BID for 15 Days, #30 CAP 0 Refills Prov:TOMASA PALMA MD 04/03/25 Tramadol HCl/Acetaminophen (Tramadol-Acetaminophn 37.5-325) 37.5 Mg-325 Mg Tablet, 1 TAB PO BID PRN for pain for 3 Days, #12 TAB 0 Refills Prov:ALLIE DRUMMOND MD 10/05/24 Lactulose (Lactulose) 10 Gram/15 Ml Solution, 10 GM PO BID PRN for CONSTIPATION for 5 Days, #100 ML Prov:ALLIE DRUMMOND MD 11/01/23 Diltiazem HCl (Diltiazem 24Hr ER) 120 Mg Cap.er.24h, 120 MG PO DAILY, #30 CAPSULE. 3 Refills Prov:ALVARO CHAVARRIA MD 11/03/22 Propafenone HCl (Propafenone HCl) 225 Mg Cap.er.12h, 225 MG PO BID, #60 CAPSULE. 3 Refills Prov:ALVARO CHAVARRIA MD 11/03/22 Fluticasone/Umeclidin/Vilanter (Trelegy Ellipta 200-62.5-25) 1 Each Blst.w.dev, 1 EACH IH DAILY, #90 DAYS Prov:ESTELLA ECKERT MD 11/01/22 Buspirone HCl (Buspirone HCl) 7.5 Mg Tablet, 7.5 MG PO BID PRN for ANXIETY, #90 TAB Prov:ESTELLA ECKERT MD 11/01/22 Oxybutynin Chloride (Oxybutynin Chloride ER) 5 Mg Tab.er.24, 5 MG PO DAILY, #90 TAB Prov:ESTELLA ECKERT MD 11/01/22 Loratadine (Loratadine) 10 Mg Tablet, 10 MG PO DAILY PRN for allergy, #90 TAB Prov:ESTELLA ECKERT MD 11/01/22 Reported Medications Olmesartan Medoxomil (Olmesartan Medoxomil) 40 Mg Tablet, 20 MG PO AM, TAB 10/26/22 Apixaban (Eliquis) 5 Mg Tablet, 5 MG PO BID, TAB 10/26/22 Topiramate (Topiramate) 25 Mg Tablet, 25 MG PO AM, TAB 10/26/22 Multivitamins,Therapeutic (Multivitamin Tablet) 1 Tab Tab, 1 TAB PO DAILY, TAB 10/26/22 Tizanidine HCl (Tizanidine HCl) 2 Mg Capsule, 2 MG PO HSPRN PRN for MUSCLE SPASMS, CAP 11/16/21 Simvastatin (Simvastatin) 20 Mg Tablet, 20 MG PO HS, TAB 11/16/21 Past Medical History Past Medical History: A-Fib, High Cholesterol, Hypertension Medical History Other: TIA Past Surgical History: None Surgical History Other: AORTIC VALVE SX Family History Family History: DM, HTN Social History Social History: Negative, Lives with family Physical Exam General Appearance: (+) no apparent distress Orientation: (+) alert, (+) oriented x 3 Head/Face Trauma: No Eye: bilateral eye normal inspection Ear, Nose, Throat: (+) hearing grossly normal, (+) normal ENT inspection Neck: (+) normal inspection Respiratory: (+) chest non-tender, (+) lungs clear Heart: (+) regular, (+) no gallop Gastrointestinal: (+) soft, (+) tender Breast Exam: (+) deferred Genital: (+) deferred Rectal: (+) hemorrhoids Extremities: (+) normal range of motion, (+) non-tender Neurologic/Psychiatric: (+) normal speech, (+) no sensory deficits Skin: (+) normal color Results Laboratory and Microbiology Lab and Micro Result Laboratory Tests Test 04/03/25 14:31 04/03/25 14:42 Urine Color COLORLESS (YELLOW) Urine Appearance CLEAR (CLEAR) Urine pH 7.0 (5.0-8.0) Urine Specific [place] 1.007 (1.001-1.031) Urine Protein NEGATIVE mg/dL (NEGATIVE) Urine Glucose (UA) NEGATIVE mg/dL (NEGATIVE) Urine Ketones NEGATIVE mg/dL (NEGATIVE) Urine Occult Blood NEGATIVE (NEGATIVE) Urine Nitrate NEGATIVE (NEGATIVE) Urine Bilirubin NEGATIVE mg/dL (NEGATIVE) Urine Urobilinogen 0.2 mg/dL (0.2-1.0) Urine Leukocyte Esterase NEGATIVE Mat/uL White Blood Count 10.0 K/uL (4.8-10.8) Red Blood Count 4.79 MIL/uL (4.00-5.50) Hemoglobin 13.9 g/dL (12.0-16.0) Hematocrit 41.2 % (36-48) Mean Corpuscular Volume 86.0 fL (79-99) Mean Corpuscular Hemoglobin 29.0 pg (27.0-33.0) Mean Corpuscular Hemoglobin Concent 33.7 g/dL (32.0-36.0) Red Cell Distribution Width 12.8 % (11.0-15.5) Platelet Count 240 K/uL (130-400) Mean Platelet Volume 9.8 fL (7.5-10.5) Immature Granulocyte % (Auto) 0.4 % (0-1) Neutrophils (%) (Auto) 61.3 % (40.0-77.0) Lymphocytes (%) (Auto) 27.0 % (21.0-51.0) Monocytes (%) (Auto) 7.5 % (3.0-13.0) Eosinophils (%) (Auto) 3.2 % (0.0-8.0) Basophils (%) (Auto) 0.6 % (0.0-5.0) Neutrophils # (Auto) 6.1 K/uL (1.8-7.7) Lymphocytes # (Auto) 2.7 K/uL (1.0-4.8) Monocytes # (Auto) 0.8 K/uL (0.1-1.0) Eosinophils # (Auto) 0.32 K/uL (0.00-0.70) Basophils # (Auto) 0.06 K/uL (0.00-0.20) Absolute Immature Granulocyte (auto 0.04 K/uL (0-1) Nucleated Red Blood Cells 0.0 % (0.0-0.19) Sodium Level 133 mmol/L (136-145) L Potassium Level 4.0 mmol/L (3.5-5.1) Chloride Level 100 mmol/L (101-111) L Carbon Dioxide Level 27 mmol/L (21-32) Blood Urea Nitrogen 8 mg/dL (7-18) Creatinine 0.6 mg/dL (0.5-1.0) Glomerular Filtration Rate Calc 90 mL/min (>90) Random Glucose 101 mg/dL (70-105) Total Calcium 9.0 mg/dL (8.5-10.1) MDM Rationale: This consult and ordered secondary to share decision-making include CBC, BMP, urinalysis Previous outside records reviewed: Old ER visits Medications-per medication reconciliation Need for hospitalization: Patient does not meet criteria for hospitalization. Need for emergency major/minor surgery: No There are no social concerns with this patient Prescription drug management Description we will include symptomatic care I independently interpreted the test that were performed, results were reviewed by me and considered finding from Radiology ordered Medical management and examination interpretation discussions were had by me with other qualified health summer child caregiver as indicated for the patient's care ED Course Orders Procedure Category Date Status Time Cbc With Differential LAB 04/03/25 Complete 14:19 Basic Metabolic Panel LAB 04/03/25 Complete 14:19 Urinalysis Profile LAB 04/03/25 Complete 14:26 Vital Signs Date Time Temp Pulse Resp B/P (MAP) Pulse Ox O2 Delivery O2 Flow Rate FiO2 04/03/25 14:06 98.2 64 18 176/75 98 Room Air* 0 21 04/03/25 13:59 98.2 62 16 176/73 98 Room Air 0 DX & DISP Disposition: Discharge Departure Impression: Primary Impression: Bleeding grade I hemorrhoids Critical Time: 30 minutes Condition: Stable Scripts Pramoxine HCl/Zinc Oxide (Hemorrhoid 1%-12.5% Ointment) 1 %-12.5 % Oint...g. 56 GM TP BID, #5 Prov: NELIDA FLORES MD 04/03/25 Docusate Sodium (Colace) 100 Mg Capsule 1 CAP PO BID for 15 Days, #30 CAP 0 Refills Prov: TOMASA PALMA MD 04/03/25 Referrals: ESTELLA ECKERT MD (PCP) TOMASA PALMA MD Apr 03, 2025 15:11 NELIDA FLORES MD Apr 03, 2025 15:42
[2025-04-03] MEDS ORDERED: DOCU-116 PO (15:36)
[2025-04-03] MEDS ORDERED: PRAM56OI TP (15:41)
[2025-04-03 15:49] VITALS: BP 176/73; PULSE 63; RESP 15; TEMP 98.2; O2SAT 99
== END 2025-04-03 15:50 | disposition home or self-care (01) ==
LOC: EDH 13:58
DX: K64.0 First degree hemorrhoids (principal); I48.91 Unspecified atrial fibrillation; E78.00 Pure hypercholesterolemia, unspecified; I10 Essential (primary) hypertension; K59.00 Constipation, unspecified; Z88.0 Allergy status to penicillin; Z79.01 Long term (current) use of anticoagulants; Z86.73 Personal history of transient ischemic attack (TIA), and cerebral infarction without residual deficits
CPT/HCPCS: 36415; 80048; 81003; 85025; 99283

== ENCOUNTER 2025-04-07 13:03 | Emergency (ER) | payer MEDICARE ==
[~2025-04-07] VITALS: Ht 162.6 cm; Wt 54.9 kg
[~2025-04-07 13:03] MED LIST changes: +DOCU-116 PO; +PRAM56OI TP
--- NOTE | 2025-04-07 13:10 | ERN ---
ED Note History of Present Illness Stated Complaint: HEMORRHOID Chief Complaint: Hemorrhoids Time Seen by MD: 13:05 Dictation: PATIENT IS A 79-YEAR-OLD FEMALE COMING IN TODAY WITH KNOWN HEMORRHOIDS AND HAS HAD CONSTIPATION. SHE WAS SEEN HERE ON 04/03 AND WAS TREATED WITH DOCUSATE SODIUM AND PAIN MEDS TOLD TO SEE HER PRIMARY CARE DOCTOR FOR REFERRAL. SHE SAID SHE SAW HER PRIMARY CARE DOCTOR, DR. ECKERT WHO ADVISED HER TO TAKE PRUNE JUICE AND WOULD REFERRED TO [facility]GE[facility]. SHE STATES SHE CONTINUES TO HAVE PAIN. Allergies: Coded Allergies: Penicillins (Unverified Allergy, Unknown, 11/15/21) POSSIBLE ALLERGY Home Meds Active Scripts Pramoxine HCl/Zinc Oxide (Hemorrhoid 1%-12.5% Ointment) 1 %-12.5 % Oint...g., 56 GM TP BID, #5 Prov:NELIDA FLORES MD 04/03/25 Docusate Sodium (Colace) 100 Mg Capsule, 1 CAP PO BID for 15 Days, #30 CAP 0 Refills Prov:TOMASA PALMA MD 04/03/25 Tramadol HCl/Acetaminophen (Tramadol-Acetaminophn 37.5-325) 37.5 Mg-325 Mg Tablet, 1 TAB PO BID PRN for pain for 3 Days, #12 TAB 0 Refills Prov:ALLIE DRUMMOND MD 10/05/24 Lactulose (Lactulose) 10 Gram/15 Ml Solution, 10 GM PO BID PRN for CONSTIPATION for 5 Days, #100 ML Prov:ALLIE DRUMMOND MD 11/01/23 Diltiazem HCl (Diltiazem 24Hr ER) 120 Mg Cap.er.24h, 120 MG PO DAILY, #30 CAPSULE. 3 Refills Prov:ALVARO CHAVARRIA MD 11/03/22 Propafenone HCl (Propafenone HCl) 225 Mg Cap.er.12h, 225 MG PO BID, #60 CAPSULE. 3 Refills Prov:ALVARO CHAVARRIA MD 11/03/22 Fluticasone/Umeclidin/Vilanter (Trelegy Ellipta 200-62.5-25) 1 Each Blst.w.dev, 1 EACH IH DAILY, #90 DAYS Prov:ESTELLA ECKERT MD 11/01/22 Buspirone HCl (Buspirone HCl) 7.5 Mg Tablet, 7.5 MG PO BID PRN for ANXIETY, #90 TAB Prov:ESTELLA ECKERT MD 11/01/22 Oxybutynin Chloride (Oxybutynin Chloride ER) 5 Mg Tab.er.24, 5 MG PO DAILY, #90 TAB Prov:ESTELLA ECKERT MD 11/01/22 Loratadine (Loratadine) 10 Mg Tablet, 10 MG PO DAILY PRN for allergy, #90 TAB Prov:ESTELLA ECKERT MD 11/01/22 Reported Medications Olmesartan Medoxomil (Olmesartan Medoxomil) 40 Mg Tablet, 20 MG PO AM, TAB 10/26/22 Apixaban (Eliquis) 5 Mg Tablet, 5 MG PO BID, TAB 10/26/22 Topiramate (Topiramate) 25 Mg Tablet, 25 MG PO AM, TAB 10/26/22 Multivitamins,Therapeutic (Multivitamin Tablet) 1 Tab Tab, 1 TAB PO DAILY, TAB 10/26/22 Tizanidine HCl (Tizanidine HCl) 2 Mg Capsule, 2 MG PO HSPRN PRN for MUSCLE SPASMS, CAP 11/16/21 Simvastatin (Simvastatin) 20 Mg Tablet, 20 MG PO HS, TAB 11/16/21 Past Medical History Past Medical History: A-Fib, High Cholesterol, Hypertension Additional Past Medical Hx: TIA Surgical History: Hysterectomy Surgical History Other: AORTIC VALVE SX Family History: DM, HTN Social History: Negative, Lives with family History: Not Applicable RN Note Reviewed/Agreed w/PFSH: Yes Review of System Dictation CONSTITUTIONAL: NEGATIVE EXCEPT FOR HPI HEAD/FACE: NEGATIVE EXCEPT FOR HPI EENT: NEGATIVE EXCEPT FOR HPI RESPIRATORY: NEGATIVE EXCEPT FOR HPI GASTROINTESTINAL/ABDOMINAL: NEGATIVE EXCEPT FOR HPI HEMORRHOID PAIN GENITOURINARY: NEGATIVE EXCEPT FOR HPI MUSCULOSKELETAL: NEGATIVE EXCEPT FOR HPI INTEGUMENTARY: NEGATIVE EXCEPT FOR HPI NEUROLOGICAL/PSYCH: NEGATIVE EXCEPT FOR HPI HEMATOLOGIC/LYMPHATIC: NEGATIVE EXCEPT FOR HPI ALL SYSTEMS NEGATIVE, EXCEPT NOTED ABOVE. 13 POINT REVIEW OF SYSTEMS ASSESSED AND ALL NEGATIVE EXCEPT FOR ABOVE. Initial Vital Sign VS Vital Signs Date Time Temp Pulse Resp B/P (MAP) Pulse Ox O2 Delivery O2 Flow Rate FiO2 04/07/25 13:03 98.1 88 20 144/93 98 Room Air 12/28/25 14:16 0 21 Physical Exam Dictation VITAL SIGNS REVIEWED GENERAL APPEARANCE: ALERT, ORIENTED X 3, MILD ACUTE DISTRESS, WELL DEVELOPED, NOURISHED. HEAD AND FACE: NON-TRAUMATIC. EYES: PERRL, PINK CONJUNCTIVAS, EYELID NO TRAUMA, ANTERIOR CHAMBER WITH ARCUS SENILIS. EARS: PINNAS INTACT AND NO SIGNS OF TRAUMA OR ERYTHEMA EAR CANALS CLEAR AND NO DISCHARGE TM NO ERYTHEMA NOSE: NO DISCHARGE, NO BLEEDING. OROPHARYNX: MOUTH NORMAL, TONGUE PINK, PHARYNX CLEAR,NO ERYTHEMA, TONSILS NO EXUDATES, NO ABSCESSES NOTED, MUCOUS MEMBRANE MOIST NECK: SUPPLE, NON-TENDER, NO THYROMEGALY, NO MASSES, NO JVD, NO BRUITS BREAST:DEFERRED CHEST:NO TENDERNESS, NO CREPITUS, NO PARADOXICAL MOVEMENT, NO RETRACTIONS LUNGS:CLEAR, WELL-VENTILATED, SYMMETRIC, NO RALES, NO WHEEZING, NO RHONCHI, NO STRIDOR, GOOD BREATH SOUNDS BILATERALLY HEART: REGULAR RATE, REGULAR RHYTHM, NO MURMUR, NO GALLOPS VASCULAR: NO PERIPHERAL EDEMA, ABDOMEN: SOFT, POSITIVE BOWEL SOUNDS, NONDISTENDED, NO GUARDING, NONTENDER, NO REBOUND, NO MASSES NO HEPATOMEGALY, NO SPLENOMEGALY, NO SOSA'S SIGN, NO HERNIAS. RECTAL: NON THROMBOSED HEMORRHOIDS AT 12 AND 06:00. TONE IS NORMAL GENITAL: DEFERRED NEUROLOGICAL: NORMAL SPEECH, MOTOR FUNCTION INTACT, SENSORY FUNCTION INTACT MUSCULOSKELETAL: NECK NONTENDER, FULL RANGE OF MOTION, BACK NONTENDER, FULL RANGE OF MOTION, EXTREMITIES: NONTENDER, FULL RANGE OF MOTION SKIN: COLOR PINK, DRY, NO TURGOR, NO RASH, NO LACERATIONS, NO ABRASIONS, NO CONTUSIONS. LYMPHATIC: DEFERRED Results (Laboratory/Radiology) Labs Reviewed?: Yes ED Course ED Course Vital Signs Date Time Temp Pulse Resp B/P (MAP) Pulse Ox O2 Delivery O2 Flow Rate FiO2 04/07/25 14:16 98.1 87 19 140/88 99 Room Air* 0 21 04/07/25 13:03 98.1 88 20 144/93 98 Room Air 1445/PATIENT WILL BE DISCHARGED HOME WITH METAMUCIL B.I.D., HYDROCORTISONE ACETATE SUPPOSITORIES , TYLENOL WITH CODEINE TOLD SEE HER DOCTOR TUESDAY FOR REFERRAL TO [facility] Medical Decision Making MDM MEDICAL DECISION-MAKING BASED ON HPI AND PHYSICAL EXAMINATION. PATIENT HAS TWO EXTERNAL HEMORRHOIDS THAT ARE NOT THROMBOSED SHE WILL BE DISCHARGED HOME AFTER TREATMENT FOR PAIN WITH METAMUCIL B.I.D. WITH WATER, TYLENOL WITH CODEINE, HYDROCORTISONE ACETATE AND SEE HER DOCTOR TUESDAY FOR REFERRAL TO [place] DX & DISP Disposition: Discharge Departure Impression: Primary Impression: External hemorrhoid Condition: Stable Scripts Psyllium Husk (with Sugar) (Metamucil Powder) 3.4 Gram/12 Gram Powder 575 GM PO BIDAC, #15 APPL 1 TSP IN 8 OZ OF WATER TWICE A DAY FOR 10 DAYS. Prov: CHERRI PIÑA 04/07/25 Acetaminophen with Codeine (Acetaminophen-Cod #3 Tablet) 300 Mg-30 Mg Tablet 1 TAB PO Q4H PRN for MODERATE TO SEVERE PAIN, #12 TAB 0 Refills Prov: CHERRI PIÑA 04/07/25 Hydrocortisone Acetate (Hydrocortisone Acetate) 25 Mg Supp.rect 1 SUPP [place] BID for 14 Days, #28 SUPP 0 Refills Prov: CHERRI PIÑAP 04/07/25 Referrals: ESTELLA ECKERT MD (PCP) Time of Disposition: 14:45 I have reviewed the case, and I agree with, Diagnosis and Plan CHERRI PIÑA Apr 07, 2025 13:10
[2025-04-07 14:16] VITALS: BP 140/88; PULSE 87; RESP 19; TEMP 98.1; O2SAT 99
[2025-04-07] MEDS ORDERED: PSYL575P22 PO (14:47)
[2025-04-07] MEDS ORDERED: HYDR25SU7 PR (14:47)
[2025-04-07] MEDS ORDERED: ACET-2079 PO (14:47)
== END 2025-04-07 15:13 | disposition home or self-care (01) ==
LOC: EDH 13:03
DX: K64.4 Residual hemorrhoidal skin tags (principal); I10 Essential (primary) hypertension; E78.00 Pure hypercholesterolemia, unspecified; I48.91 Unspecified atrial fibrillation; Z88.0 Allergy status to penicillin; Z90.710 Acquired absence of both cervix and uterus; Z86.73 Personal history of transient ischemic attack (TIA), and cerebral infarction without residual deficits; Z79.01 Long term (current) use of anticoagulants
CPT/HCPCS: 99283; 96374; J1885